=== PATIENT | female | born 1950 | race Caucasian/White ===

== ENCOUNTER 2022-08-28 17:10 | Emergency (ER) | payer OTHER, SELFPAY ==
[2022-08-28] VITALS (8 sets, daily range): BP systolic 140–155; BP diastolic 70–78; PULSE 66–78; RESP 18–36; TEMP 36.6; O2SAT 94–98; BMI 26.3
--- NOTE | 2022-08-28 17:16 | DI.RAD.S_ITS ---
PROCEDURE: XR CHEST 1V INDICATIONS: lower ext pain TECHNIQUE: One view of the chest was acquired. COMPARISON: None. FINDINGS: Surgical changes and devices: None. Lungs and pleura: On this supine examination, no large pneumothorax or large pleural effusions are seen. No focal areas of lung consolidation are seen. Mediastinum: The cardiac contours are within normal limits. The aorta demonstrates calcification and tortuosity. Bones and chest wall: No suspicious bony lesions. Age-appropriate bony degenerative changes are seen. Overlying soft tissues appear unremarkable. IMPRESSION: Portable chest within normal limits. Dictated by: Robert Rushing M.D. on 08/28/2022 at 16:53 Approved by: Robert Rushing M.D. on 08/28/2022 at 16:54
--- NOTE | 2022-08-28 17:16 | DI.RAD.S_ITS ---
PROCEDURE: XR PELVIS 1-2V INDICATIONS: lower ext pain TECHNIQUE: 1 view(s) of the pelvis acquired. COMPARISON: [facility], CR, XR TIBIA FIBULA LT 2V, 08/28/2022, 17:05. [facility], CR, XR CHEST 1V, 08/28/2022, 17:05. FINDINGS: Bones: No fractures or dislocations. No suspicious bony lesions. Degenerative changes are seen of both hips as well as the visualized lower lumbar spine. Soft tissues: Visualized bowel gas pattern is normal. No suspicious soft tissue calcifications. IMPRESSION: No displaced fractures can be seen on this single view plain film study. If there is point tenderness (or other clinical suspicion for a fracture not seen on these images) then a dedicated CT could be considered for further evaluation, if clinically appropriate. Dictated by: Robert Rushing M.D. on 08/28/2022 at 16:54 Approved by: Robert Rushing M.D. on 08/28/2022 at 16:55
--- NOTE | 2022-08-28 17:16 | DI.RAD.S_ITS ---
PROCEDURE: XR TIBIA FIBULA LT 2V INDICATIONS: lower ext pain TECHNIQUE: 2 views of the tibia and fibula were acquired. COMPARISON: [facility], CR, XR PELVIS 1-2V, 08/28/2022, 17:05. [facility], CR, XR CHEST 1V, 08/28/2022, 17:05. FINDINGS: Bones: There is mild irregularity seen involving the lateral tibial plateau. The bones otherwise are unremarkable for age, with generalized degenerative changes seen. Soft tissues: There is a moderate knee joint effusion. IMPRESSION: Mild irregularity seen involving the lateral tibial plateau. This may represent a tibial plateau fracture. - If clinically appropriate, please consider a dedicated knee CT for further evaluation. There is a moderate knee joint effusion. Dictated by: Robert Rushing M.D. on 08/28/2022 at 17:24 Approved by: Robert Rushing M.D. on 08/28/2022 at 17:25
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
[2022-08-28 17:28] LABS: Add Manual Diff / Slide Review NO; Basophils Absolute Auto 100 /uL (0-100); Basophils Percent Auto 0.8 % (0-2); Eosinophils Absolute Auto 0 /uL (0-450); Eosinophils Percent Auto 0.6 % (2-4); Hematocrit 42.8 % (36-46); Hemoglobin 14.7 g/dL (12.0-16.0); Lymphocytes Absolute Auto 3200 /uL (1100-4500); Lymphocytes Percent Auto 35.5 % (25-40); Mean Corpuscular HGB Conc 34.2 % (30-36); Mean Corpuscular Hemoglobin 29.2 PG (26-34); Mean Corpuscular Volume 85.2 fL (80-100); Monocytes Absolute Auto 500 /uL (0-900); Monocytes Percent Auto 5.8 % (3-14); Neutrophils Absolute Auto 5100 /uL (1500-7000); Neutrophils Percent Auto 57.3 % (50-75); Platelet Count 302 X10^3/uL (150-400); Red Blood Cell Count 5.03 X10^6/uL (4.0-5.2); Red Cell Distribution Width 13.6 % (11.6-14.8)
[2022-08-28 17:36] LABS: INR 0.9 (0.9-1.3); Prothrombin Time 10.5 SECONDS (10.1-12.7)
[2022-08-28 17:39] LABS: PTT Partial Thromboplastin Tim 28 SECONDS (26-36)
[2022-08-28 17:40] LABS: Lactate (Lactic Acid) 3.2 mmol/L (0.7-2.1)
[2022-08-28 17:41] LABS: Alanine Aminotransferase 30 IU/L (<35); Albumin 4.8 g/dL (3.5-5.0); Albumin Globulin Ratio 1.4 (1.0-2.8); Alkaline Phosphatase 85 U/L (38-126); Aspartate Aminotransferase 32 IU/L (14-36); BUN Creatinine Ratio 23.1 (6-22); Bilirubin Total 0.5 mg/dL (0.2-1.3); Blood Urea Nitrogen 15 mg/dL (7-17); Calcium 9.8 mg/dL (8.4-10.2); Carbon Dioxide 27 mmol/L (22-32); Chloride 102 mmol/L (98-107); Estimated Glomerular Filt Rate > 60 mL/min (>60); Ethanol (ETOH) 77 mg/dL; Globulin 3.4 g/dL (1.7-4.1); Glucose 113 mg/dL (80-110); HEMOLYSIS 25 (0-50); Lipase 62 U/L (23-300); Potassium 3.8 mmol/L (3.4-5.1); Sodium 141 mmol/L (137-145); Total Protein 8.2 g/dL (6.3-8.2)
[2022-08-28] MEDS: HYDROCODONE/ACET 5/325 TABLET 1 TAB PO ×2 (18:30→20:50)
--- NOTE | 2022-08-28 18:34 | DI.CT.S_ITS ---
PROCEDURE: CT LE LT W CON INDICATIONS: left tib/fib pain, proximal, possible fx. TECHNIQUE: Noncontrast 1-1.5 mm axial sections acquired from the mid-patella to the proximal tibia, with coronal and sagittal reformats. COMPARISON: [facility], CR, XR TIBIA FIBULA LT 2V, 08/28/2022, 17:05. FINDINGS: Image quality: Adequate Bones: Acute mildly displaced lateral tibial plateau fracture. Approximately 3 mm of depression. No definite split component of the fracture identified suggestive of Schatzker type 3 injury. Soft tissues: A lipohemarthrosis is present. IMPRESSION: Acute mildly depressed lateral tibial plateau fracture. Dictated by: Jb Olivares M.D. on 08/28/2022 at 20:14 Approved by: Jb Olivares M.D. on 08/28/2022 at 20:23
[2022-08-28 19:22] LABS: Reflexed Lactate in 2 Hours Y
[2022-08-28 20:07] LABS: Lactate 2HR (Lactic Acid Rflx) 2.4 mmol/L (0.7-2.1)
[2022-08-28] MEDS: HYDROCODONE/ACET 5/325 PREPACK 1 BOTTLE MISC (20:51)
== END 2022-08-28 22:20 | disposition home or self-care (01) ==
PROVIDERS: Emergency Medicine; Emergency Provider Emergency Medicine
DX: S82.142A Displaced bicondylar fracture of left tibia, initial encounter for closed fracture (principal); S29.9XXA Unspecified injury of thorax, initial encounter; R10.2 Pelvic and perineal pain; V19.9XXA Pedal cyclist (driver) (passenger) injured in unspecified traffic accident, initial encounter
CPT/HCPCS: 29505; 36415; 71045; 72170; 73590; 73700; 80053; 80320; 83605; 83690; 85025; 85610; 85730; 86850; 86900; 86901; 93005; 99285